=== PATIENT | female | born 1980 | race Caucasian/White ===

== ENCOUNTER 2016-09-23 08:55 | Emergency (ER) | payer OTHER ==
[~2016-09-23] VITALS: Ht 170.2 cm; Wt 101.2 kg
[2016-09-23 10:01] LABS: BASOPHIL % 0.1 % (0-2)
[2016-09-23 10:12] LABS: CARBON DIOXIDE 26.8 mmol/L (21-32); CHLORIDE SERUM 104 mmol/L (98-107); CREATININE SERUM 0.7 mg/dL (0.6-1.0); GFR1 > 60 mL/min; GLUCOSE SERUM 97 mg/dL (74-106); POTASSIUM SERUM 3.7 mmol/L (3.5-5.1); SODIUM SERUM 137 mmol/L (136-145)
[2016-09-23 10:17] LABS: ALBUMIN 3.4 g/dL (3.4-5.0); ALKALINE PHOSPHATASE 64 U/L (46-116); ALT/SGPT 20 U/L (14-59); AST/SGOT 14 U/L (15-37); BILIRUBIN TOTAL 0.66 mg/dL (0.20-1.00); RED CELL DISTRIBUTION WIDTH 21.8 % (11.5-14.5); TOTAL PROTEIN, SERUM 7.5 g/dL (6.4-8.2)
[2016-09-23 10:18] LABS: PLATELET COUNT 405 x10^3mcL (130-400)
[2016-09-23 10:52] LABS: rbc morphology (normal/abnorm) ABNORMAL (NORMAL)
[2016-09-23 12:10] VITALS: BP 129/63
== END 2016-09-23 12:10 | disposition home or self-care (01) ==
LOC: ED 08:55
PROVIDERS: Emergency Medicine
DX: K12.2 Cellulitis and abscess of mouth (principal); D50.9 Iron deficiency anemia, unspecified; H92.01 Otalgia, right ear; I10 Essential (primary) hypertension; R06.02 Shortness of breath; R53.1 Weakness
CPT/HCPCS: 83880; J1170; J3490; Q9967